=== PATIENT | male | born 1995 | race Caucasian/White ===

== ENCOUNTER 2019-03-08 15:58 | Emergency (ER) | payer BC ==
[2019-03-08 16:04] VITALS: BP 132/80; PULSE 82; RESP 18; TEMP 98.2
--- NOTE | 2019-03-08 16:21 | ED ---
General Adult HPI - General Chief complaint: Extremity Injury, Upper Stated complaint: arm pain Time Seen by Provider: 03/08/19 16:08 Source: patient, RN notes reviewed Mode of arrival: ambulatory Limitations: no limitations - History of Present Illness Initial comments: 23 year old male presents to the emergency department for right thumb and wrist pain times one day. Patient states that he notices that when he makes the javad up or extend his wrist he has some pain extending from the right thumb up to the dorsal right wrist. Denies any injuries. Denies falling on the hand or wrist. Denies fevers or chills. He shouldn't states this just started today. 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 Patient has no other complaints at this time including shortness of breath, chest pain, abdominal pain, nausea or vomiting, headache, or visual changes. - Related Data Allergies Allergy/AdvReac Type Severity Reaction Status Date / Time No Known Allergies Allergy Verified 03/08/19 16:04 Review of Systems ROS Statement: Those systems with pertinent positive or pertinent negative responses have been documented in the HPI. ROS Other: All systems not noted in ROS Statement are negative. Past Medical History Past Medical History: No Reported History History of Any Multi-Drug Resistant Organisms: None Reported Additional Past Surgical History / Comment(s): eye surgery Past Psychological History: No Psychological Hx Reported Smoking Status: Current every day smoker Past Alcohol Use History: Occasional Past Drug Use History: Marijuana General Exam Limitations: no limitations General appearance: alert, in no apparent distress Head exam: Present: atraumatic, normocephalic, normal inspection Eye exam: Present: normal appearance, PERRL, EOMI. Absent: scleral icterus, conjunctival injection, periorbital swelling ENT exam: Present: normal exam, mucous membranes moist Neck exam: Present: normal inspection, full ROM. Absent: tenderness, me ningismus, lymphadenopathy Respiratory exam: Present: normal lung sounds bilaterally. Absent: respiratory distress, wheezes, rales, rhonchi, stridor Cardiovascular Exam: Present: regular rate, normal rhythm, normal heart sounds. Absent: systolic murmur, diastolic murmur, rubs, gallop, clicks Extremities exam: Present: full ROM (Full range of motion of the right hand including the right thumb and right wrist.), normal capillary refill (Capillary refill less than 2 seconds, radial pulse 2+ in the right upper extremity.), other (Strength 5 out of 5 in the right upper extremity. Sensation intact.). Absent: tenderness (No tenderness noted to the right wrist or hand. No tenderness to the extensor tendon of the right thumb.), pedal edema, joint swelling (No edema or erythema of the right wrist or thumb. No erythema or edema of the right hand or wrist. No evidence of trauma.), calf tenderness Neurological exam: Present: alert Course Vital Signs 03/08/19 16:02 Temperature 98.2 F Pulse Rate 82 Respiratory 18 Rate Blood Pressure 132/80 O2 Sat by Pulse 99 Oximetry Medical Decision Making - Medical Decision Making 23 old male presents to the emergency department for a chief complaint of right thumb and wrist pain. Patient adamantly denies any injury. 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 States he recently started working at a store that has a higher volume of customers. On exam patient has full range of motion of the right wrist and hand. Paediatric Physiotherapist strength 5 out of 5. There is no erythema or edema. No fevers. No tenderness of the extensor tendon. No evidence for infection of the skin tendon or joint. Did discuss the patient that his likely an overuse injury however I did offer x- rays. Patient refuses at this time. States he would rather follow up with orthopedics. Discussed rice therapy. Discussed returning here if he has any worsening symptoms. Disposition Clinical Impression: Overuse injury Disposition: HOME SELF-CARE Condition: Good Instructions (If sedation given, give patient instructions): Hand Sprain (ED) Additional Instructions: Please take Motrin and Tylenol for pain. Please ice the right wrist and hand. Chart to limit the use of the right wrist and hand. Follow-up with orthopedics tomorrow. Return if you have any worsening symptoms including fever. Is patient prescribed a controlled substance at d/c from ED?: No Referrals: Geno Bullock MD [REFERRING] - 1-2 days Omar Brooks MD [STAFF PHYSICIAN] - 1-2 days Time of Disposition: 16:21
== END 2019-03-08 16:25 | disposition home or self-care (01) ==
LOC: EC 15:58
DX: M70.941 Unspecified soft tissue disorder related to use, overuse and pressure, right hand (principal); F17.200 Nicotine dependence, unspecified, uncomplicated; X50.3XXA Overexertion from repetitive movements, initial encounter
CPT/HCPCS: 99283

== ENCOUNTER 2021-01-18 10:14 | Emergency (ER) | payer BC ==
[2021-01-18 10:28] VITALS: RESP 18; TEMP 98.1
--- NOTE | 2021-01-18 11:11 | ED ---
Upper Extremity HPI - General Chief Complaint: Extremity Injury, Upper Stated Complaint: Thumb Pain Time Seen by Provider: 01/18/21 10:31 Source: patient, RN notes reviewed Mode of arrival: ambulatory Limitations: no limitations - History of Present Illness Initial Comments: This a 25-year-old male presents emergency Department with chief complaint of r ight thumb possible foreign body, discomfort. Patient states he went to open the screen states it was broken states that he's had discomfort underneath his nail states that he cut his nail shorter off now that there is an opening. He cannot visualize any foreign body. Up-to-date vaccinations including tetanus. Patient continues it with no difficulty no redness no fevers or chills. - Related Data Allergies Allergy/AdvReac Type Severity Reaction Status Date / Time No Known Allergies Allergy Verified 01/18/21 10:25 Review of Systems ROS Statement: Those systems with pertinent positive or pertinent negative responses have been documented in the HPI. ROS Other: All systems not noted in ROS Statement are negative. Past Medical History Past Medical History: No Reported History History of Any Multi-Drug Resistant Organisms: None Reported Past Surgical History: No Surgical Hx Reported Additional Past Surgical History / Comment(s): eye surgery Past Psychological History: ADD/ADHD Smoking Status: Current every day smoker Past Alcohol Use History: Occasional Past Drug Use History: Marijuana General Exam Limitations: no limitations General appearance: alert, in no apparent distress Respiratory exam: Present: normal lung sounds bilaterally. Absent: respiratory distress, wheezes, rales, rhonchi, stridor Cardiovascular Exam: Present: regular rate, normal rhythm, normal heart sounds. Absent: systolic murmur, diastolic murmur, rubs, gallop, clicks Extremities exam: Present: other (Right thumb there is no bleeding along the nail, nail fold region there is superficial, no erythema no drainage full range of motion nontender no foreign body noted.) Course Vital Signs 01/18/21 10:25 Temperature 98.1 F Pulse Rate 84 Respiratory 18 Rate Blood Pressure 146/90 O2 Sat by Pulse 99 Oximetry Medical Decision Making - Medical Decision Making X-ray is negative for foreign body there is no obvious signs of infection he does have a superficial cut within the nail fold bacitracin was applied, wrapped. Patient advised to leave his finger alone and change manages every 24 hours with close follow-up. Disposition Clinical Impression: Nail bed injury, Superficial injury of finger Disposition: HOME SELF-CARE Condition: Stable Instructions (If sedation given, give patient instructions): Acute Wound Care (ED) Additional Instructions: Please return to the Emergency Department if symptoms worsen or any other concerns. Is patient prescribed a controlled substance at d/c from ED?: No Referrals: None,Stated [Primary Care Provider] - 1-2 days Time of Disposition: 12:00
--- NOTE | 2021-01-18 11:56 | XR ---
EXAMINATION TYPE: XR finger RT DATE OF EXAM: 01/18/2021 COMPARISON: NONE HISTORY: First digit pain TECHNIQUE: 3 views right thumb FINDINGS: No definite acute fracture or dislocation of the right thumb. IMPRESSION: No definite acute fracture or dislocation of the right thumb.
[2021-01-18] MEDS ORDERED: BACITRACIN OINT 1 EACH PACKET TOPICAL ONE (11:58)
[2021-01-18 12:24] VITALS: BP 108/88; PULSE 98
== END 2021-01-18 12:24 | disposition home or self-care (01) ==
LOC: EC 10:14
DX: S60.931A Unspecified superficial injury of right thumb, initial encounter (principal); F90.9 Attention-deficit hyperactivity disorder, unspecified type; F17.200 Nicotine dependence, unspecified, uncomplicated; F12.90 Cannabis use, unspecified, uncomplicated; W26.8XXA Contact with other sharp object(s), not elsewhere classified, initial encounter
CPT/HCPCS: 99283